=== PATIENT | male | born 1995 | race Caucasian/White ===

== ENCOUNTER 2017-06-26 03:46 | Emergency (ER) | payer OTHER ==
--- NOTE | 2017-06-26 04:17 | EDPHY ---
H & P Stated Complaint: Mechanical fall, thumb pain/deformity - ETOH Time Seen by Provider: 06/26/17 04:11 HPI/ROS: Chief Complaint: Left thumb injury HPI: 21-year-old intoxicated male had a mechanical fall this morning when he fell backwards on his left thumb. Patient felt a pop and noticed significant deformity. He admits to drinking this morning. No other injuries at this time. He is up-to-date in his tetanus. Denies past medical history. ROS: 10 point Review of Systems is negative except as noted in the HPI. PMH: Denies Social History: No smoking, occasional alcohol, Family History: non-contributory Physical Exam: General: Awake, alert, no acute distress, Left hand: Obvious deformity at the MCP joint of his left thumb. Capillary refills less than 2 sec. Sensations intact. Decreased range of motion secondary to deformity and pain. He is neurologically intact in the radial, median, and ulnar nerve distribution. Skin: No rash. - Personal History Current Tetanus/Diphtheria Vaccine: Yes Current Tetanus Diphtheria and Acellular Pertussis (TDAP): Yes - Medical/Surgical History Hx Asthma: No Hx Chronic Respiratory Disease: No Hx Diabetes: No Hx Cardiac Disease: No Hx Renal Disease: No Hx Cirrhosis: No Hx Alcoholism: No Hx HIV/AIDS: No Hx Splenectomy or Spleen Trauma: No Other PMH: Denies - Social History Smoking Status: Never smoked Constitutional: Initial Vital Signs Temperature (C) 36.8 C 06/26/17 03:49 Heart Rate 113 H 06/26/17 03:49 Respiratory Rate 18 06/26/17 03:49 Blood Pressure 103/75 06/26/17 03:49 O2 Sat (%) 93 06/26/17 03:49 O2 Delivery Mode Room Air Allergies/Adverse Reactions: No Known Allergies Allergy (Unverified 06/26/17 03:52) Home Medications: Medication Instructions Recorded NK [No Known Home Meds] 06/26/17 Medical Decision Making - Diagnostics Imaging Results: Left hand x-ray shows a left thumb dislocation. There is also an out avulsion fracture of the proximal phalanx. This is per my interpretation. Postreduction x-ray shows the joint in place. No obvious fractures Procedures: Procedure: Digital nerve block, indication is digit anesthesia for procedure. Patient was prepped with chlorhexidine Skin prep. 0.5% bupivacaine was infiltrated in the medial in lateral aspects for with a dorsal approach at the base of the proximal phalanx with blockage of both dorsal and volar nerves. Total of 1 mL was infiltrated. There were no complications. Procedure was performed by myself. Procedure: Dislocation reduction. The left thumb was reduced with extraction and volar pressure without complications. Post reduction the patient's neurovascular exam is normal. Post reduction x-ray demonstrates reduction of the joint to the anatomic position. The procedure was performed by myself. Patient was placed in an aluminum foam thumb splint and discharged with follow up with Hand surgery. ED Course/Re-evaluation: Repeat examination reveals alignment of the thumb. Patient has been placed in Velcro thumb spica splint He has been discharged with follow up with Hand surgery. Departure - Departure Disposition: Home, Routine, Self-Care Clinical Impression: Thumb dislocation Condition: Good Instructions: Finger Dislocation (ED) Additional Instructions: Leave the splint in place until your seen by the hand doctor. Follow up with the hand surgeon in 3-4 days for further evaluation. You may alternate ibuprofen with acetaminophen as needed for pain. Referrals: Mari Lara MD [Medical Doctor] - As per Instructions
[2017-06-26 05:03] VITALS: BP 105/72
== END 2017-06-26 05:03 | disposition home or self-care (01) ==
PROC: 0RSVXZZ Reposition Left Metacarpophalangeal Joint, External Approach (ICD-10-PCS; principal; 2017-06-26)
DX: S63.105A Unspecified dislocation of left thumb, initial encounter (principal); W18.39XA Other fall on same level, initial encounter; Y99.8 Other external cause status; Y93.89 Activity, other specified